=== PATIENT | female | born 1930 | race Caucasian/White ===

== ENCOUNTER → 2017-12-02 | Day surgery (SDC) | payer OTHER ==
[~2017-12-02] VITALS: Ht 152.4 cm; Wt 52.2 kg
[2017-12-02 08:53] VITALS: BP 134/93
[2017-12-02 11:08] VITALS: BP 148/54
== END | disposition home or self-care (01) ==
LOC: GI 07:33 → OR 09:30
PROVIDERS: Internal Medicine Gastroenterology
PROC: 0DB68ZX Excision of Stomach, Via Natural or Artificial Opening Endoscopic, Diagnostic (ICD-10-PCS; principal; 2017-12-02 09:30)
DX: K26.9 Duodenal ulcer, unspecified as acute or chronic, without hemorrhage or perforation (principal); K29.80 Duodenitis without bleeding; K59.00 Constipation, unspecified; R63.0 Anorexia; R63.4 Abnormal weight loss
CPT/HCPCS: 43235; J1200; J1610; J2250; J2310; J3010; J3490

== ENCOUNTER 2019-01-01 17:30 | Emergency (ER) | payer OTHER ==
[~2019-01-01] VITALS: Ht 157.5 cm; Wt 56.2 kg
[~2019-01-01 17:30] MED LIST: APAP500 MG PO; ARICEPT5 MG PO; COLACE100 MG PO; MAGNESIUM OXID400 MG PO; METFORMIN HCL500 MG PO; METP PO; MIRALAX17 GM/Dose PO; OMEPRAZOLE40 M1 PO; ZOF4 PO
[2019-01-01 17:34] VITALS: Ht 157.5 cm; Wt 56.2 kg
[2019-01-01 20:37] VITALS: BP 159/84
== END 2019-01-01 20:37 | disposition home or self-care (01) ==
LOC: ED 17:30
DX: S00.03XA Contusion of scalp, initial encounter (principal); S09.8XXA Other specified injuries of head, initial encounter; I10 Essential (primary) hypertension; E11.9 Type 2 diabetes mellitus without complications; F03.90 Unspecified dementia, unspecified severity, without behavioral disturbance, psychotic disturbance, mood disturbance, and anxiety; W09.8XXA Fall on or from other playground equipment, initial encounter; Y93.89 Activity, other specified; Y92.89 Other specified places as the place of occurrence of the external cause; Y99.8 Other external cause status
CPT/HCPCS: J1885; Q0162

== ENCOUNTER 2019-01-22 15:36 | Inpatient (IN) | payer OTHER ==
[~2019-01-22] VITALS: Ht 162.6 cm; Wt 54.4 kg
[2019-01-22 16:02] VITALS: Ht 162.6 cm; Wt 54.4 kg
[2019-01-22 16:22] LABS: BASOPHIL % 0.3 % (0-2); PLATELET COUNT 214 x10^3mcL (130-400); RED CELL DISTRIBUTION WIDTH 13.9 % (11.5-14.5)
--- NOTE | 2019-01-22 16:33 | NUR ---
CALLED TO TREATMENT AREA, NO ANSWER.
[2019-01-22 16:34] LABS: CALCIUM 9.6 mg/dL (8.5-10.1); CARBON DIOXIDE 30.1 mmol/L (21-32); CHLORIDE SERUM 98 mmol/L (98-107); CREATININE SERUM 1.1 mg/dL (0.6-1.0); GLUCOSE SERUM 152 mg/dL (74-106); SODIUM SERUM 137 mmol/L (136-145)
[2019-01-22 16:39] LABS: ALBUMIN 3.9 g/dL (3.4-5.0); ALKALINE PHOSPHATASE 73 U/L (46-116); ALT/SGPT 18 U/L (14-59); AST/SGOT 17 U/L (15-37); BILIRUBIN TOTAL 0.3 mg/dL (0.20-1.00); LIPASE 124 IU/L (73-393); TOTAL PROTEIN, SERUM 7.5 g/dL (6.4-8.2)
--- NOTE | 2019-01-22 16:40 | NUR ---
PT TAKEN TO ED BED 12 VIA WC.
--- NOTE | 2019-01-22 17:05 | NUR ---
PT TO BED 12 VIA WHEELCHAIR ACCOMPANIED BY DAUGHTER WITH C/O ABD PAIN; PT HAS HX OF RECURRENT UTI'S WHICH HAVE BEEN RESOLVED PER DAUGHTER, PT DENIES ANY DIARRHEA OR HX OF ULCERS, HAS HAD A CHOLECYSTECTOMY MANY YEARS AGO; URINE SAMPLE OBTAINED; WAITING ON FURTHER ORDERS
--- NOTE | 2019-01-22 17:30 | NUR ---
IV FLUIDS INFUSING WELL, BOILING OFF WINDER AT BEDSIDE FOR INTERVIEW, PT MEDICATED, BUT STILL REMAINS IN PAIN. PROVIDER INFORMED
--- NOTE | 2019-01-22 18:05 | NUR ---
ADDITONAL MEDICATION ORDERS REC'D; PT WHEELED TO CT,WAITING ON RTN FOR MEDICATION ADMIN
[2019-01-22 18:33] LABS: microscopic required? YES; urine erythrocyte NEGATIVE (NEGATIVE)
--- NOTE | 2019-01-22 18:37 | NUR ---
PT RTN'D TO BED 12, WISHED TO USE BR PRIOR TO ADMIN OF MEDS
--- NOTE | 2019-01-22 18:51 | NUR ---
PT MEDICATED PER ORDER, BP NOTED TO BE ELEVATED, WILL RE EVAL FOR IMPROVEMENT OF BLOOD PRESSURE
--- NOTE | 2019-01-22 19:06 | NUR ---
REPORT RECIEVED FROM AGENCY YARELI PROCTOR
--- NOTE | 2019-01-22 19:08 | NUR ---
MD DUNLAP MADE AWARE OF PT LATEST BP. SEE VITALS. NEW ORDERS IN PLACE SEE EMAR
--- NOTE | 2019-01-22 19:41 | NUR ---
PT HAD ONE EPISODE OF VOMITING. MD DUNLAP MADE AWARE
[2019-01-22 20:29] LABS: T3 TOTAL 0.74 ng/mL
[2019-01-22 20:34] LABS: CHOLESTEROL/HDL RATIO 4.2; FREE T4 1.21 ng/dL (0.76-1.46); T4(THYROXINE) 8.3 ug/dL (4.7-13.3)
[2019-01-22] MEDS ORDERED: NEU300 PO (20:55)
[2019-01-22] MEDS ORDERED: ALOGLIPTIN25 MG PO (20:59)
[2019-01-22] MEDS ORDERED: OMEPRAZOLE40 M1 PO (20:59)
[2019-01-22] MEDS ORDERED: NAPROXEN375 MG PO (21:00)
[2019-01-22] MEDS ORDERED: MIRTAZAPINE15 M2 PO (21:00)
[2019-01-22] MEDS ORDERED: OXYBUTYNIN CHLOR5 M2 PO (21:01)
[2019-01-22] MEDS ORDERED: ARICEPT10 MG PO (21:01)
[2019-01-22] MEDS ORDERED: METFORMIN HCL500 MG PO (21:02)
[2019-01-22] MEDS ORDERED: DETROL LA2 MG PO (21:02)
[2019-01-22] MEDS ORDERED: COLACE100 MG PO (21:02)
[2019-01-22] MEDS ORDERED: TYLENOL PO (21:03)
[2019-01-22] MEDS ORDERED: LOSARTAN POTASS50 M1 PO (21:03)
--- NOTE | 2019-01-22 21:07 | NUR ---
ATTEMPTED TO PETERSON CASTRO FOR REPORT. NO ANSWER AT THIS TIME
--- NOTE | 2019-01-22 21:18 | NUR ---
REPORT GIVENT TO GLORIA PROCTOR
--- NOTE | 2019-01-22 21:30 | NUR ---
PT IS RESTING IN BED WITH DAUGHTER AT BEDSIDE. A/O x3. KINYARWANDA SPEAKING. COMPLAINS OF ABD DISTRESS AND NAUSEA. WILL MEDICATE PER EMAR. SKIN INTACT. LUNGS CLEAR. ON RA, NO SIGN OF SOB. EQUAL CHEST RISE AND FALL. TELE #15, NSR. DENIES ANY CHEST PAIN OR PRESSURE. NO EDEMA. BED IS AT LOWEST SETTING. CALL LIGHT WITHIN REACH. RESOUCE NURSE CAT AT BEDSIDE ADMITTING PT. BED IS AT LOWEST SETTING. CALL LIGHT WITHIN REACH. WILL CONTINUE TO MONITOR.
[2019-01-22 21:45] VITALS: BP 154/77
--- NOTE | 2019-01-22 21:53 | NUR ---
PT IS IN THE BATHROOM HAVING A BM AND VOMITING. ZOFRAN WAS GIVEN PER EMAR. DAUGHTER AT PT SIDE. NO OTHER DISTRESS NOTED. WILL CONTINUE TO MONITOR.
--- NOTE | 2019-01-22 21:57 | NUR ---
RECEIVED PT FROM ER, PT ADMIT FOR ABD PAIN, VOMITTING, PT IS A/O X3, FORGETFUL, FOLLOW COMMAND. BUT MILD DROWSY AT THIS MOMENT, LUNG SOUND CLEAR BILATERAL,NO COUGH, NO SOB, PT IS ON TELE 15, FIRST DEGREE BLOCK, DENY ANY CHEST PAIN OR DISCOMFORT, BOWEL SOUND PRESENT ALL 4 QUADRANTS, NO DISTENTION, NO TENDER. BUT PT C/O MID ABD PAIN 10/10 AND NAUSEA. PEDAL PULSE PRESENT BOTH FEET, NO EDEMA, IV AT LEFT AC, NO LEAKING, NO INFILTRATION. ALL ADLS ASSIST, ALL NEED MET, CALL LIGHT IN REACH, WILL CONTINUE TO MONITOR.
[2019-01-22 23:20] LABS: BASOPHIL % 0.2 % (0-2); PLATELET COUNT 200 x10^3mcL (130-400); RED CELL DISTRIBUTION WIDTH 14.4 % (11.5-14.5)
--- NOTE | 2019-01-23 00:29 | NUR ---
PT IS RESTING IN BED WITH BOTH EYES CLOSED. BREATHING EVEN AND UNALBORED. NO SIGN OF DISTRESS NOTED. DAUGHTER IS AT BEDSIDE. BED IS AT LOWEST SETTING. CALL LIGHT WITHIN REACH. WILL CONTINUE TO MONTIOR.
[2019-01-23 05:38] VITALS: BP 140/76
--- NOTE | 2019-01-23 05:58 | NUR ---
PT IS RESTING IN BED WITH BOTH EYES CLOSED. BREATHING EVEN AND UNLABORED. NO SIGN OF DISTRESS NOTED. DAUGHTER AT BEDSIDE ALL NIGHT. NO ACUTE EVENT OCCURED AT NIGHT. BED IS AT LOWEST SETTING. CALL LIGHT WITHIN REACH. WILL ENDORSE TO AM NURSE.
--- NOTE | 2019-01-23 07:23 | NUR ---
RECEIVED PT FROM YI GUTIERREZ. PT AWAKE AND ALERT. SPEAKS POLISH. NO ABD. PAIN AT THIS TIME. DENIES NAUSEA. NO DIZZINESS. FOLLOWS COMPLEX COMMANDS. NO S/S OF ACUTE DISTRESS. NO SOB ON ROOM AIR. NO CHEST PAIN. IV WNL TO LAC, PATENT AND FLUSHES WELL. IV FLUIDS FLOWING. CALM/COOPERATIVE. FALL PRECAUTIONS IN PLACE. FAMILY MEMBER AT BEDSIDE. BED IN LOW POSITION. CALL LIGHT WITHIN REACH. INSTRUCTED TO USE CALL LIGHT TO CALL FOR ASSISTANCE PRN. VERBALIZED UNDERSTANDING. WILL CONTINUE TO MONITOR.
[2019-01-23 07:24] LABS: BASOPHIL % 0.2 % (0-2); PLATELET COUNT 202 x10^3mcL (130-400)
[2019-01-23 07:30] LABS: RED CELL DISTRIBUTION WIDTH 14.6 % (11.5-14.5)
[2019-01-23 07:35] LABS: CALCIUM 8.6 mg/dL (8.5-10.1); CARBON DIOXIDE 25.9 mmol/L (21-32); CHLORIDE SERUM 103 mmol/L (98-107); CREATININE SERUM 0.9 mg/dL (0.6-1.0); GLUCOSE SERUM 116 mg/dL (74-106); MAGNESIUM 2.1 mg/dL (1.8-2.4); PHOSPHOROUS 3.4 mg/dL (2.5-4.9); POTASSIUM SERUM 3.9 mmol/L (3.5-5.1); SODIUM SERUM 139 mmol/L (136-145)
[2019-01-23 09:27] VITALS: BP 160/73
--- NOTE | 2019-01-23 10:50 | NUR ---
PT RESTING IN BED WITH BOTH EYES CLOSED. EASILY AROUSABLE TO VERBAL STIMULI. NO S/S OF ACUTE DISTRESS. NO SOB ON ROOM AIR. NO COMPLAINT OF PAIN AT THIS TIME. NO CHEST PAIN. NO N/V. NPO FOR EXAMS. PT CALM/COOPERATIVE. FALL PRECAUTIONS IN PLACE. IV WNL, SALINE LOCKED. BED IN LOW POSITION. CALL LIGHT WITHIN REACH. FAMILY MEMBER AT BEDSIDE. WILL CONTINUE TO MONITOR.
[2019-01-23 12:50] VITALS: BP 148/79
--- NOTE | 2019-01-23 13:34 | NUR ---
PT TAKEN FOR MRI MRCP. AA/OX1, NO S/S OF ACUTE DISTRESS. NO SOB ON ROOM AIR. NO COMPLAINT OF PAIN. PT USED BSC PRIOR TO BEING TAKEN BY WHEELCHAIR TO MRI. VOID X1, URINE CLEAR/YELLOW. AMBULATORY WITH FULL ROM, GAIT SLOW/UNSTEADY. NEEDS 1 PERSON ASSIST. IV WNL TO LAC, PATENT AND FLUSHES WELL. SALINE LOCKED. NO ABD. PAIN AT THIS TIME. NO N/V. CALM/COOPERATIVE. WILL CONTINUE TO MONITOR.
[2019-01-23 17:32] VITALS: BP 157/73
--- NOTE | 2019-01-23 18:27 | NUR ---
PT LAYING IN BED WITH HOB ELEVATED. NO S/S OF ACUTE DISTRESS. COMPLAINT OF MILD CONTINUOUS CASTELLANO. DECLINED TO PAIN MEDICATION AT THIS TIME. RATES PAIN 4/10. REPORTS TOLERABLE. NO N/V. TOLERATING CCHO DIET WELL. NO COMPLAINT OF ABDOMINAL PAIN. NO CHEST PAIN. IV WNL TO LAC, PATENT AND FLUSHES WELL. IV FLUIDS FLOWING. FALL PRECAUTIONS IN PLACE. FAMILY MEMBER AT BEDSIDE. BED IN LOW POSITION. CALL LIGHT WITHIN REACH. WILL ENDORSE TO ONCOMING SHIFT.
--- NOTE | 2019-01-23 20:12 | NUR ---
RECEIVED PT IN BED AAOX2 , ANGOLAN SPEAKING ONLY , FAMILY AT THE BEDSIDE AT THE MOMENT ASSIST PT WITH CARE AND TRANLATING , LUNG SOUNDS CTA , ABD SOFT BS ACITVE X4, PT DENY ABD PAIN AT THE MOMENT . ON TELE NUMBER 15 THAT SHOWS NSR HR 77, PIV TO LAC WITH PROTONIX AT 10ML/HR , CALL LIGHT WITHIN PT'S REACH , WILL CON'T TO MONITOR PT.
[2019-01-23 20:46] VITALS: BP 180/91
[2019-01-23 22:24] VITALS: BP 162/90
--- NOTE | 2019-01-23 23:10 | NUR ---
BP 161/90 CLONODIN 0.1MG GIVEN PO PER DR RITTER ORDER.
[2019-01-24] VITALS (7 sets, daily range): BP systolic 139–170; BP diastolic 69–79
--- NOTE | 2019-01-24 01:15 | NUR ---
POST CLONIDIN BP 153/79 MAP 97 HR 68
--- NOTE | 2019-01-24 03:11 | NUR ---
PT'S IN BED AWAKE NO ACUTE AND CONFUSED , FAMILY AT BED SIDE , PIV INTACT INFUSING WELL , TELE NSR .
--- NOTE | 2019-01-24 03:35 | NUR ---
I HAVE REVIEWED THE DATA COLLECTION BY MAULIK (NAME):CARL CASTELLANOS ENTERED ON (DATE/TIME):01/23 I CONCUR WITH THE DATA AND ANY EXCEPTIONS OR COMMENTS ARE LISTED BELOW:
--- NOTE | 2019-01-24 06:30 | NUR ---
PT'S IN BED HAVING US OF ABD DONE , DENY PAIN . PIV INTACT INFUSING WELL PROTONIX AT 10ML/HR . TELE NSR .
--- NOTE | 2019-01-24 07:20 | NUR ---
RECEIVED PT FROM YI RN. PT AA/OX1 (SELF), REORIENTED TO PLACE/TIME. SPEAKS DIVEHI. FAMILY MEMBER AT BEDSIDE. REPORTS MILD EPIGASTRIC PAIN, RATES 2/10. INTERMITTENT. DECLINED TO PAIN MEDICATION. DENIES N/V AT THIS TIME. ABD. SOFT, ROUND, NON-DISTENDED. BOWEL SOUNDS ACTIVE X4. REPORTS CONSTIPATION. FOLLOWS COMPLEX COMMANDS, RESPONDS TO VERBAL STIMULI. FACE SYMMETRICAL. SPEECH CLEAR. DENIES CASTELLANO AT THIS TIME. NO CHEST PAIN. NSR ON TELE, HR 63. BSC AT BEDSIDE. FALL PRECAUTIONS IN PLACE. PT REPOSITIONS INDEPENDENTLY. IV WNL TO LAC, IV PROTONIX RUNNING AT 10CC/HR. IV SITE WNL. PT CALM/COOPERATIVE. BED IN LOW POSITION. CALL LIGHT WITHIN REACH. INSTRUCTED TO USE CALL LIGHT TO CALL FOR ASSISTANCE PRN. VERBALIZED UNDERSTANDING. WILL CONTINUE TO MONITOR.
[2019-01-24 07:39] LABS: CHLORIDE SERUM 104 mmol/L (98-107); CREATININE SERUM 0.9 mg/dL (0.6-1.0); GLUCOSE SERUM 129 mg/dL (74-106); POTASSIUM SERUM 3.8 mmol/L (3.5-5.1); SODIUM SERUM 139 mmol/L (136-145)
[2019-01-24 07:42] LABS: BASOPHIL % 0.3 % (0-2); PLATELET COUNT 185 x10^3mcL (130-400); RED CELL DISTRIBUTION WIDTH 14.4 % (11.5-14.5)
--- NOTE | 2019-01-24 10:27 | NUR ---
PT BEING TAKEN FOR EGD BY HARJINDER. AA/OX1, NO S/S OF ACUTE DISTRESS. NO COMPLAINT OF PAIN. NO SOB ON ROOM AIR. NO CHEST PAIN. ACCOMPANIED BY FAMILY MEMBER. CALM/COOPERATIVE. IV WNL TO LAC, SALINE LOCKED. BELONGINGS WITH FAMILY/IN ROOM.
[2019-01-24 11:17] LABS: BILIRUBIN DIRECT 0.07 mg/dL (0.0-0.2); BILIRUBIN TOTAL 0.2 mg/dL (0.20-1.00); TOTAL PROTEIN, SERUM 6.5 g/dL (6.4-8.2)
[2019-01-24 11:18] LABS: ALBUMIN 3.1 g/dL (3.4-5.0)
--- NOTE | 2019-01-24 12:37 | NUR ---
PT BACK FROM PROCEDURE AT 1223. AA/OX1. FOLLOWS COMPLEX COMMANDS. BP ELEVATED 170/79, GIVEN PRN PO BP MED ORDER. HR 61, O2 SAT 96% ON ROOM AIR. RR EVEN/UNLABORED. NO SOB. COMPLAINT OF CASTELLANO, RATES 6/10. GIVEN TYLENOL. SEE MAR. NO DIZZINESS. VISION WNL. NO CHEST PAIN. AMBULATORY TO RESTROOM GAIT SLOW/STEADY. IV WNL TO LAC, PATENT AND FLUSHES WELL. SALINE LOCKED. BED IN LOW POSITION. CALL LIGHT WITHIN REACH. FAMILY AT BEDSIDE. WILL CONTINUE TO MONITOR.
--- NOTE | 2019-01-24 12:48 | NUR ---
PT SWITCHED TELEMETRY BOXES, TELE 14. NORMAL SINUS KENNY ON TELE 14.
--- NOTE | 2019-01-24 13:43 | NUR ---
BP DECREASING 153/71, REPORTS CASTELLANO TOLERABLE AT THIS TIME, REPORTS IMPROVEMENT, RATES PAIN 2/10. NO DIZZINESS. NO CHEST PAIN. CALM/COOPERATIVE. AA/OX1. FAMILY MEMBER AT BEDSIDE. WILL CONTINUE TO MONITOR.
--- NOTE | 2019-01-24 15:24 | NUR ---
Initial Nutrition Assessment: 254T/B AMELIA SIMPSON IA HR Dx: Abdominal pain, vomiting PMHx: HTN, DM, multiple UTIs, early onset dementia, chronic back pain PSHx: Cholecystectomy, Hysterectomy Labs: BG 129H, BUN 21H, A1C 8.1H, CHOL 203H, LDL 135H Meds: Colace, remeron, senokot, zofran Diet: CCHO PO Intake: (01/23) dinner 50%, breakfast 40% Ht: 162.56 cm (64") Wt: 54.4 kg (119#) BMI: 20.6 kg/m2 Bed scale: 58 kg (127#) IBW: 120# (54.5 kg) %IBW: 99 UBW: 124-126# Age: 88/F Food Allergies: NKFA Skin: intact Cristobal: 21 Edema: none GI: Last BM: 01/21 Trigger: poor PO >3d Per H&P, Pt is a 88 year old female with PMH of HTN, DM, multiple UTIs, early onset dementia, chronic back pain came to the hospital with chief complaint of abdominal pain. RDN Visit (01/24): Patient only understood Grenadian, so patient's daughter helped in translation. She said that patient ate some of her lunch this afternoon but has poor appetite is general. Patient was also complaining of abd pain. Problem with: N/V/D/C: Nausea Problems with: Chewing/Swallowing: none Current appetite: poor Recent wt change: lost weight not sure about # of lbs. %wt change: N/A Vitamin/Supplement use: none Special diet at home: regular Physical activity: sedentary Nutrition education given: Diabetes diet education was provided using [facility] handout on 'Type 2 Diabetes Nutrition Therapy'. Concepts like high fiber diet, label reading, types of carbohydrates and portion control were discussed. Patient verbalized understanding and did not have any questions at this time. Food-drug interactions: Colace- high fiber w/1584-7603 ml fluids Education given: yes Estimated Nutritional Needs Based on actual body weight 54.4 kg Energy: 4085-3292 kcal/d (25-30 kcal/kg) Protein: 54.4-65 g/d (1.0-1.2 g/kg) - geriatric maintenance Fluid: 6359-6533 ml/d (1 ml/kcal) or per doctor Nutrition Diagnosis 1. Inadequate oral intake related to poor appetite/ nausea/abd pain as evidenced by documented PO of 50% and poor PO reported by daughter. 2. Impaired nutrient utilization related to endocrine dysfunction as evidenced by A1C:8.1, BG 129. Intervention 1. Recommend continuing CCHO diet. 2. Diabetes diet education provided. Monitor/Evaluate Goal: PO intake at least 75% of estimated needs Monitor: PO intake, Labs, GI function F/U in 3-5 days as moderate risk
--- NOTE | 2019-01-24 18:36 | NUR ---
PT LAYING IN BED. COMPLAINT OF CASTELLANO. RATES 4/10, INTERMITTENT. GIVEN TYLENOL. SEE MAR. NO DIZZINESS. NO N/V. NO ABD. PAIN. CALM/COOPERATIVE. AMBULATORY TO RESTROOM, GAIT STEADY. HAD BM X1, PT/FAMILY FLUSHED. PT/FAMILY RE-EDUCATED TO USE HAT TO COLLECT STOOL SAMPLE FOR OB. VERBALIZED UNDERSTANDING. NO CHEST PAIN. NO SOB ON ROOM AIR. IV WNL TO LAC, PATENT AND FLUSHES WELL. SALINE LOCKED. BED IN LOW POSITION. CALL LIGHT WITHIN REACH. FALL PRECAUTIONS IN PLACE. WILL ENDORSE TO ONCOMING SHIFT.
--- NOTE | 2019-01-24 19:25 | NUR ---
RECEIVED PT FROM PREVIOUS SHIFT NURSE. PT AOX1, ORIENTED TO SELF. DENIES CASTELLANO/DIZZINESS AT THIS TIME. TELE #15, NSR. DENIES CP/PRESSURE. DENIES SOB/DIFFICULTY BREATHING, ON RA. IV TO LAC, INTACT AND PATENT. BED IN LOWEST POSITION. CALL LIGHT WITHIN REACH. WILL CONTINUE TO MONITOR.
--- NOTE | 2019-01-25 02:19 | NUR ---
PT RESTING IN BED. RR EVEN AND UNLABORED. IN NO ACUTE DISTRESS. CALL LIGHT WITHIN REACH. BED IN LOWEST POSITION. NIECE AT BEDSIDE. WILL CONTINUE TO MONITOR.
[2019-01-25 05:55] VITALS: BP 169/84
[2019-01-25 06:44] LABS: BASOPHIL % 0.4 % (0-2); PLATELET COUNT 190 x10^3mcL (130-400)
[2019-01-25 07:00] LABS: RED CELL DISTRIBUTION WIDTH 14.7 % (11.5-14.5)
[2019-01-25 07:07] LABS: CARBON DIOXIDE 30.4 mmol/L (21-32); CHLORIDE SERUM 105 mmol/L (98-107); CREATININE SERUM 0.8 mg/dL (0.6-1.0); GLUCOSE SERUM 125 mg/dL (74-106); POTASSIUM SERUM 3.4 mmol/L (3.5-5.1); SODIUM SERUM 141 mmol/L (136-145)
--- NOTE | 2019-01-25 07:22 | NUR ---
RECEIVED PT FROM SHIFT NRUSE ASLEEP BUT AROUSABLE. RESP EVEN AND UNLABORED ON RA. IV INTACT AND PATENT.FAMILY MEMBER AT BEDSIDE. BED IN LOW POSITION. CALL LIGHT WITHIN REACH. WILL CONTINUE TO MONITOR.
[2019-01-25 09:49] VITALS: BP 157/87
--- NOTE | 2019-01-25 10:23 | NUR ---
PT ASLEEP BUT AROUSABLE. NO ACUTE DISTRESS NOTED. FAMILY MEMBER AT BEDSIDE. CALL LIGHT WITHIN REACH. WILL CONTINUE TO MONITOR.
--- NOTE | 2019-01-25 12:30 | NUR ---
PT SITTING ON EDGE OF BED EATING LUNCH. NO ACUTE DISTRESS NOTED. DAUGHTER AT BEDSIDE. CALL LIGHT WITHIN REACH. WILL CONTINUE TO MONITOR.
[2019-01-25 12:57] VITALS: BP 153/81
[2019-01-25 13:21] VITALS: BP 153/81
--- NOTE | 2019-01-25 14:07 | NUR ---
PT A/OX4 UPON DC. DENIES ANY HEADACHE. IV REMOVED AND CATH INTACT. NEW RX GIVEN. EDUCATION PROVIDED. NEW APT GIVEN. PT VERBALIZED UNDERSTANDING. PERSONAL BELONGINGS TAKEN HOME. INSTRUCTED TO INFORM NURSES STATION BEFORE LEAVING.
--- NOTE | 2019-01-25 14:15 | NUR ---
ACCOMPANIED BY PRESSURE SEALER AND TESTER VIA WHEELCHAIR TO LOBBY
== END 2019-01-25 14:22 | disposition home or self-care (01) | DRG 241 ==
LOC: ED 15:36 → DU 20:02
PROVIDERS: Emergency Medicine; General Practice; Internal Medicine Gastroenterology; ADMIT Internal Medicine
PROC: 0DB68ZX Excision of Stomach, Via Natural or Artificial Opening Endoscopic, Diagnostic (ICD-10-PCS; principal; 2019-01-24 10:30)
DX: K26.9 Duodenal ulcer, unspecified as acute or chronic, without hemorrhage or perforation (principal); D64.9 Anemia, unspecified; E11.9 Type 2 diabetes mellitus without complications; E86.0 Dehydration; E78.5 Hyperlipidemia, unspecified; F03.90 Unspecified dementia, unspecified severity, without behavioral disturbance, psychotic disturbance, mood disturbance, and anxiety; I10 Essential (primary) hypertension; G89.29 Other chronic pain; M54.9 Dorsalgia, unspecified; G44.89 Other headache syndrome; M19.90 Unspecified osteoarthritis, unspecified site; T39.395A Adverse effect of other nonsteroidal anti-inflammatory drugs [NSAID], initial encounter; Y92.89 Other specified places as the place of occurrence of the external cause; Z90.710 Acquired absence of both cervix and uterus; Z87.440 Personal history of urinary (tract) infections; Z79.84 Long term (current) use of oral hypoglycemic drugs; Z90.49 Acquired absence of other specified parts of digestive tract
CPT/HCPCS: 43235; 74181; 83880; 84439; 97116-GP; 97530-GP; C9113; G0378; J0360; J1200; J1610; J2250; J2270; J2310; J2405; J3010; J3490; J7030; Q0092; Q9967

== ENCOUNTER 2019-05-30 01:03 | Emergency (ER) | payer OTHER ==
[~2019-05-30] VITALS: Ht 162.6 cm; Wt 53.1 kg
[~2019-05-30 01:03] MED LIST changes: +ALOGLIPTIN25 MG PO; +ARICEPT10 MG PO; +DETROL LA2 MG PO; +LOSARTAN POTASS50 M1 PO; +MIRTAZAPINE15 M2 PO; +NAPROXEN375 MG PO; +NEU300 PO; +OXYBUTYNIN CHLOR5 M2 PO; +TYLENOL PO
[2019-05-30 01:14] VITALS: Ht 162.6 cm; Wt 53.1 kg
[2019-05-30 02:27] LABS: CALCIUM 8.3 mg/dL (8.5-10.1); CARBON DIOXIDE 25.6 mmol/L (21-32); CHLORIDE SERUM 97 mmol/L (98-107); CREATININE SERUM 0.9 mg/dL (0.6-1.0); GLUCOSE SERUM 254 mg/dL (74-106); POTASSIUM SERUM 3.9 mmol/L (3.5-5.1); SODIUM SERUM 131 mmol/L (136-145)
[2019-05-30 02:31] LABS: ALBUMIN 3.5 g/dL (3.4-5.0); ALKALINE PHOSPHATASE 62 U/L (46-116); ALT/SGPT 19 U/L (14-59); AST/SGOT 20 U/L (15-37); BILIRUBIN TOTAL 0.14 mg/dL (0.20-1.00); LIPASE 184 IU/L (73-393)
[2019-05-30 02:46] LABS: BASOPHIL % 0.5 % (0-2); PLATELET COUNT 190 x10^3mcL (130-400)
[2019-05-30 03:20] VITALS: BP 156/78
== END 2019-05-30 02:37 | disposition home or self-care (01) ==
LOC: ED 01:03
PROVIDERS: Emergency Medicine
DX: E11.649 Type 2 diabetes mellitus with hypoglycemia without coma (principal); I10 Essential (primary) hypertension; F03.90 Unspecified dementia, unspecified severity, without behavioral disturbance, psychotic disturbance, mood disturbance, and anxiety; R10.13 Epigastric pain; R51 Headache
CPT/HCPCS: 82962; J3490; Q0092